=== PATIENT | female | born 1990 | race Caucasian/White ===

== ENCOUNTER → 2016-12-28 | Outpatient (CLI) | payer SELFPAY ==
[~2016-12-28] MED LIST: CITALOPRAM HBR40 M1 PO; DESYREL50 MG PO; NECON PO
== END | disposition home or self-care (01) ==
LOC: CBAR 15:29
DX: E66.01 Morbid (severe) obesity due to excess calories (principal); Z71.3 Dietary counseling and surveillance
CPT/HCPCS: G0463

== ENCOUNTER → 2017-01-29 | Outpatient (CLI) | payer SELFPAY | END | disposition home or self-care (01) | LOC: CBAR 15:38 | DX: Z01.818 Encounter for other preprocedural examination (principal); E66.01 Morbid (severe) obesity due to excess calories | CPT/HCPCS: G0463 ==

== ENCOUNTER → 2017-03-01 | Outpatient (CLI) | payer SELFPAY | END | disposition home or self-care (01) | LOC: CBAR 06:17 | DX: Z01.818 Encounter for other preprocedural examination (principal); E66.01 Morbid (severe) obesity due to excess calories | CPT/HCPCS: G0463 ==

== ENCOUNTER → 2017-03-22 | Outpatient (CLI) | payer SELFPAY | END | disposition home or self-care (01) | LOC: CBAR 07:39 | DX: Z01.818 Encounter for other preprocedural examination (principal); E66.01 Morbid (severe) obesity due to excess calories | CPT/HCPCS: G0463 ==

== ENCOUNTER → 2017-04-19 | Outpatient (CLI) | payer BC ==
--- NOTE | ~2017-04-19 | CR63 ---
[facility] A Service of [facility] & [facility] RADIOLOGY TEXT RESULTS PATIENT: AVTAR RAMACHANDRAN LOCATION: [facility] : [birth year] UNIT #: [id number] AGE: [address]: Benjamin Cervantes MD SEX: F ORDER DR: [id number] [facility] [address] [place], [place] [address] [id number] O MR#: [id number] Acc #: [id number] NAME: AVTAR RAMACHANDRAN : 1990 SEX: F STUDY DATE/TIME: 04/19/2017 8:09 UNIT: [facility] ROOM: STUDY DESCRIPTION: CR Chest 2 View Attending Physician: Benjamin Cervantes M.D. Referring Physician: Benjamin Cervantes M.D. Ordering Physician: Benjamin Cervantes M.D. Primary Care Physician: René Trejo M.D. MEDICAL IMAGING REPORT This report is preliminary unless electronic signature is present EXAM Chest, PA and lateral, 04/19/2017. HISTORY Morbid obesity, preop laparoscopic gastric banding. FINDINGS PA and lateral examination of the chest upright shows a good expansion of the parenchyma with a normal distribution of the pulmonary vascularity. There is no indication of congestion, effusion, infiltrate, tumor, or nodular density. The pleural reflections and diaphragmatic contours are normal. The cardiac silhouette and mediastinal anatomy is within normal limits. IMPRESSION Normal chest. Dictated by... Patricio Hernandez M.D. THIS IS AN ELECTRONICALLY VERIFIED REPORT Patricio Hernandez M.D. at 04/19/2017 5:05 PM MORRIS/amber TD: 04/19/2017 11:24 JOB #: [id number] MEDICAL IMAGING REPORT Page 1 of 1 COPY
--- NOTE | ~2017-04-19 | CR97 ---
[facility] A Service of [facility] & [facility] RADIOLOGY TEXT RESULTS PATIENT: AVTAR RAMACHANDRAN LOCATION: [facility] : 90 UNIT #: [id number] AGE: [address]: Benjamin Cervantes MD SEX: F ORDER DR: [id number] [facility] [address] [place], [place] [address] [id number] O MR#: [id number] Acc #: [id number] NAME: AVTAR RAMACHANDRAN : 1990 SEX: F STUDY DATE/TIME: 04/19/2017 8:12 UNIT: [facility] ROOM: STUDY DESCRIPTION: CR Esophagram Attending Physician: Benjamin Cervantes M.D. Referring Physician: Benjamin Cervantes M.D. Ordering Physician: Benjamin Cervantes M.D. Primary Care Physician: René Trejo M.D. MEDICAL IMAGING REPORT This report is preliminary unless electronic signature is present EXAM Esophagram, 04/19/2017. CLINICAL HISTORY Preop evaluation for bariatric surgery. PROCEDURE Study performed with 0.3 minutes of fluoroscopy and 9 spot images. FINDINGS The esophagus is normal course and caliber. There is no stricture or mass. There is no hiatal hernia and motility is normal. IMPRESSION Normal esophagram. Dictated by... David Reynoso M.D. THIS IS AN ELECTRONICALLY VERIFIED REPORT David Reynoso M.D. at 04/19/2017 4:10 PM AGUSTIN/amber TD: 04/19/2017 13:54 JOB #: [id number] MEDICAL IMAGING REPORT Page 1 of 1 COPY
--- NOTE | ~2017-04-19 | EKG ---
PATIENT: AVTAR RAMACHANDRAN UNIT #: [id number] Ventricular Rate: 63 BPM Atrial Rate: 63 BPM P-R Interval: 156 ms QRS Duration: 88 ms Q-T Interval: 404 ms QTC Calculation(Bezet): 413 ms P [place]: 14 degrees Calculated R [place]: 10 degrees Calculated T [place]: 22 degrees Diagnosis Line: Sinus bradycardia Diagnosis Line: Low voltage QRS Diagnosis Line: No previous ECGs available Diagnosis Line: Confirmed by ALEC BLOUNT MD ([id number]) on 04/19/2017 Diagnosis Line: 5:43:34 PM INTERPRETING MD: MINE FORTUNE
[2017-04-19 08:59] LABS: HEMATOCRIT 39.8 % (35.0-45.0); HEMOGLOBIN 13.4 gm/dL (12.0-16.0); MEAN CELL VOLUME 85.3 FL (83-96); MEAN CORPUSCULAR HEMOGLOBIN 28.6 PG (28-34); MEAN CORPUSCULAR HGB CONC 33.5 g/dL (30-36); MEAN PLATELET VOLUME 8.2 FL (6.5-11.5); RED BLOOD COUNT 4.67 X10e (3.90-5.30); RED CELL DISTRIBUTION WIDTH 12.8 % (11.0-15.5)
[2017-04-19 10:02] LABS: ALBUMIN SERUM 3.8 g/dL (3.5-5.0); BILIRUBIN,TOTAL 0.6 mg/dL (0.2-2.0); BUN/CREATININE RATIO 16.66; CALCIUM SERUM 9.4 mg/dL (8.4-10.2); CREATININE SERUM 0.6 mg/dL (0.6-1.4); GLOM FILT RATE Estimated 124.9 mL/min (>60); POTASSIUM 4.1 mmol/L (3.5-5.1)
== END | disposition home or self-care (01) ==
LOC: CRAD 07:53 → CAMB 09:00
PROVIDERS: Surgery
DX: Z01.818 Encounter for other preprocedural examination (principal); E66.01 Morbid (severe) obesity due to excess calories
CPT/HCPCS: 36415; 71020; 74220; 80053; 80061; 84443; 85027; 93005

== ENCOUNTER → 2017-05-08 | Day surgery (SDC) | payer BC ==
--- NOTE | ~2017-05-08 | OR ---
Unit #: [id number] #: [id number] Patient: AVTAR RAMACHANDRAN [id number] [address] [address] [id number] O MR#: [id number] NAME: AVTAR RAMACHANDRAN ROOM: Date of Procedure: 05/08/2017 Admission Date: 05/08/2017 Surgeon: Benjamin Cervantes M.D. : 1990 Attending Physician: Benjamin Cervantes M.D. Primary Care Physician: René Trejo M.D. OPERATIVE REPORT PREOPERATIVE DIAGNOSIS Chronic morbid obesity, BMI of 40. POSTOPERATIVE DIAGNOSES 1. Chronic morbid obesity, BMI of 40. 2. Paraesophageal hiatal hernia. PROCEDURES PERFORMED 1. Laparoscopic adjustable gastric band. 2. Laparoscopic paraesophageal hiatal hernia repair. LAUNDRY PRESS OPERATOR Delvis Subramanian M.D. ANESTHESIA General endotracheal anesthesia. ESTIMATED BLOOD LOSS Minimal. IV FLUIDS 800 crystalloid. COMPLICATIONS None. INDICATIONS FOR PROCEDURE The patient is a 27-year-old with chronic morbid obesity. DESCRIPTION OF PROCEDURE The patient was taken to the operating room and placed in supine position. General anesthesia was induced. The abdomen was prepped and draped. A 3-cm incision was then made left of the midline. A 10-mm Visiport was then placed intraabdominal under direct vision. The abdomen was insufflated to 15 mmHg with CO2. The patient was then placed in a steep reversed Trendelenburg. General inspection of the abdomen revealed what appeared to be a paraesophageal hernia. This was identified with a defect at the diaphragm using anterior palpation with the instrument. We then made a small incision in the subxiphoid region. A Anne liver retractor was then placed intraabdominal and used to retract the left lobe of the liver upward to further expose the paraesophageal hernia and GE junction. I then placed a 5-mm port in the right upper quadrant, a 10-mm Unit #: [id number] #: [id number] Patient: AVTAR RAMACHANDRAN port in the left upper quadrant, and another 5-mm port in the left lower quadrant. The stomach was retracted medial and downward. Upon retracting the stomach, we took down the paraesophageal ligament, exposing the right and left vannesa at the paraesophageal hernia. Any hernia sac was reduced. We then repaired the paraesophageal hernia using interrupted #0 Ethibond sutures in a ezmtro-ex-udgsn type fashion. This formed a snug repair to the anterior esophagus. We then retracted the stomach medially and further exposed the angle of His using Bovie electrocautery. The stomach was then retracted laterally. We then took down the hepatogastric ligament with Bovie electrocautery. This exposed the right vannesa. Using blunt dissection, I created a retrogastric tunnel from this point to the angle of His. The band was then placed intraabdominal through the 10-mm port site. This was then brought through the retrogastric tunnel in a pars flaccida technique. The band was then closed anteriorly to form a 20-mL to 25-mL anterior gastric pouch. The fundus was then secured to the anterior pouch to prevent movement around the stomach using two interrupted #0 Ethibond sutures. A third suture was then used as a gathering stitch from the lesser curve to the anterior stomach, gathering and imbricating the remaining fundus of the stomach. The tubing was then brought out through the midline 10-mm port site. All ports and the Anne liver retractor were removed under direct vision with no evidence of abdominal hemorrhage. A polypropylene mesh was then secured to the posterior face of the laparoscopic band port. This was secured using #0 Ethibond suture. This was then cut to shape. The port was then connected to the tubing and placed into a subcutaneous pocket just anterior to the rectus sheath. Its position was then confirmed. All tubing was then placed intraabdominal. The wounds were then closed with interrupted 4-0 Vicryl. The patient tolerated the procedure well and was sent to the recovery room in good condition. Dictated by... Yuly Cid/mark TD: 05/08/2017 12:51 JOB #: [id number] OPERATIVE REPORT Page 1 of 1 X Benjamin Cervantes MD X PROCEDURE OPERATIVE NOTE
--- NOTE | ~2017-05-08 | CR7 ---
[facility] A Service of [facility] & [facility] RADIOLOGY TEXT RESULTS PATIENT: AVTAR RAMACHANDRAN LOCATION: [facility] : [birth year] UNIT #: [id number] AGE: [address]: Benjamin Cervantes MD SEX: F ORDER DR: [id number] [facility] [address] [place], [place] [address] [id number] O MR#: [id number] Acc #: [id number] NAME: AVTAR RAMACHANDRAN : 1990 SEX: F STUDY DATE/TIME: 05/08/2017 10:27 UNIT: [facility] ROOM: STUDY DESCRIPTION: CR Abdomen Single AP View Attending Physician: Benjamin Cervantes M.D. Ordering Physician: Benjamin Cervantes M.D. Primary Care Physician: René Trejo M.D. MEDICAL IMAGING REPORT This report is preliminary unless electronic signature is present EXAM Supine AP abdomen HISTORY Status post Lap-Band placement today. FINDINGS Bariatric device in left upper quadrant makes an angle of about 60-61 degrees relative to the thoracic spine. Dictated by... David Reynoso M.D. THIS IS AN ELECTRONICALLY VERIFIED REPORT David Reynoso M.D. at 05/09/2017 11:48 AM Rachele TD: 05/08/2017 12:00 JOB #: [id number] MEDICAL IMAGING REPORT Page 1 of 1 COPY
== END | disposition home or self-care (01) ==
LOC: CSUR 06:55
DX: E66.01 Morbid (severe) obesity due to excess calories (principal); K44.9 Diaphragmatic hernia without obstruction or gangrene; J45.909 Unspecified asthma, uncomplicated; G47.30 Sleep apnea, unspecified; Z68.41 Body mass index [BMI] 40.0-44.9, adult; Z72.4 Inappropriate diet and eating habits; Z88.1 Allergy status to other antibiotic agents; Z88.5 Allergy status to narcotic agent; Z79.899 Other long term (current) drug therapy; Z90.49 Acquired absence of other specified parts of digestive tract; Z98.890 Other specified postprocedural states
CPT/HCPCS: 74000; 84703; C1781; J0330; J1100; J1650; J1885; J2175; J2250; J2405; J3010; J3370